=== PATIENT | male | born 1985 | race Hispanic/Latino ===

== ENCOUNTER 2020-09-09 20:58 | Emergency (ER) | payer OTHER ==
[~2020-09-09] VITALS: Ht 167.6 cm; Wt 85.7 kg
[2020-09-09 21:01] VITALS: BP 142/97
[2020-09-09 22:30] VITALS: BP 136/77
[2020-09-09 22:54] LABS: HEMATOCRIT 41.6 % (42-54); MEAN CORPUSCULAR HEMOGLOBIN 30.9 pg (27.0-33.0); MEAN CORPUSCULAR HGB CONC 35.1 g/dL (32.0-36.0); MEAN CORPUSCULAR VOLUME 87.9 fL (79-99); RED BLOOD CELL COUNT(AUTO) 4.73 MIL/uL (4.50-6.20); RED CELL DISTRIBUTION WIDTH 11.5 % (11.0-15.5); WHITE BLOOD COUNT (AUTO) 6.8 K/uL (4.8-10.8)
[2020-09-09] MEDS ORDERED: LIDOCAINE HCL 2% VISCOUS 15 ML UDCUP PO SCH (23:00)
[2020-09-09] MEDS ORDERED: FAMOTIDINE/PF 20 MG/2 ML VIAL IV SCH (23:00)
[2020-09-09] MEDS ORDERED: MAG HYDROX/AL HYDROX/SIMETH ES 30 ML SUSP UDCUP PO SCH (23:00)
[2020-09-09] MEDS ORDERED: MAG HYDROX/AL HYDROX/SIMETH ES 30 ML SUSP UDCUP ONE (23:02)
[2020-09-09 23:06] LABS: CREATININE 1.1 mg/dL (0.5-1.5); POTASSIUM 4.3 mmol/L (3.5-5.1)
[2020-09-09 23:11] LABS: ALBUMIN 4.4 g/dL (3.5-5.0); BILIRUBIN,TOTAL 0.5 mg/dL (0.2-1.0); TOTAL PROTEIN, SERUM 7.7 g/dL (6.0-8.3)
[2020-09-09 23:26] VITALS: BP 138/88
[2020-09-09 23:26] LABS: APPEARANCE,URINE Clear (CLEAR); BILIRUBIN,URINE Negative (NEGATIVE); COLOR,URINE Yellow (YELLOW); GLUCOSE, URINE (UA) Negative (NEGATIVE); KETONES,URINE Negative (NEGATIVE); LEUKOCYTE ESTERASE ,URINE Negative (NEGATIVE); NITRATE,URINE Negative (NEGATIVE); OCCULT BLOOD,URINE Negative (NEGATIVE); PROTEIN,URINE Negative (NEGATIVE); UROBILINOGEN,URINE 0.2 mg/dL (0.2-1.0)
[2020-09-09] MEDS ORDERED: PANT40TA PO (23:53)
[2020-09-10 00:24] VITALS: BP 139/82
== END 2020-09-10 00:33 | disposition home or self-care (01) ==
LOC: EDH 21:29
DX: R10.13 Epigastric pain (principal); F43.9 Reaction to severe stress, unspecified; R07.89 Other chest pain; R42 Dizziness and giddiness; R53.1 Weakness; R20.0 Anesthesia of skin; Z79.899 Other long term (current) drug therapy
CPT/HCPCS: 36415; 71045; 80053; 81003; 84484; 85027; 93005; 96374; 99285; J3490

== ENCOUNTER 2021-02-26 01:52 | Inpatient (IN) | payer SELFPAY ==
[~2021-02-26] VITALS: Ht 167.6 cm; Wt 76.7 kg
[~2021-02-26 01:52] MED LIST: PANT40TA PO
[2021-02-26 02:10] LABS: BASOPHILS % (AUTO) 1.4 % (0.0-5.0); EOSINOPHILS % (AUTO) 10.5 % (0.0-8.0); HEMATOCRIT 40.5 % (42-54); LYMPHOCYTES % (AUTO) 32.8 % (21.0-51.0); MEAN CORPUSCULAR HEMOGLOBIN 30.7 pg (27.0-33.0); MEAN CORPUSCULAR HGB CONC 34.1 g/dL (32.0-36.0); MEAN CORPUSCULAR VOLUME 90.2 fL (79-99); MONOCYTES % (AUTO) 8.3 % (3.0-13.0); NEUTROPHILS % (AUTO) 46.8 % (40.0-77.0); PLATELET COUNT (AUTO) 267 K/uL (130-400); RED BLOOD CELL COUNT(AUTO) 4.49 MIL/uL (4.50-6.20); RED CELL DISTRIBUTION WIDTH 12.4 % (11.0-15.5); WHITE BLOOD COUNT (AUTO) 8.5 K/uL (4.8-10.8)
[2021-02-26 02:23] LABS: ALANINE AMINOTRANSFERASE 25 U/L (12-78); ALBUMIN 4.4 g/dL (3.5-5.0); ASPARTATE AMINOTRANSFERASE 17 U/L (10-37); BILIRUBIN,TOTAL 0.3 mg/dL (0.2-1.0); CARBON DIOXIDE 34 mmol/L (21-32); CHLORIDE 103 mmol/L (101-111); CREATININE 1.1 mg/dL (0.5-1.5); GLOMERULAR FILTR. RATE CALC 81 mL/min (>60); POTASSIUM 3.5 mmol/L (3.5-5.1); SODIUM SERUM 143 mmol/L (136-145); TOTAL PROTEIN, SERUM 7.5 g/dL (6.0-8.3); UREA NITROGEN, BLOOD 17 mg/dL (7-18)
[2021-02-26 02:28] LABS: AMPHET/METH SCREEN,URINE NEGATIVE (NEGATIVE); BARBITURATE SCREEN, URINE NEGATIVE (NEGATIVE); BENZODIAZEPINES SCREEN,URINE POSITIVE (NEGATIVE); CANNABINOID SCREEN,URINE NEGATIVE (NEGATIVE); COCAINE SCREEN,URINE NEGATIVE (NEGATIVE); OPIATE SCREEN,URINE NEGATIVE (NEGATIVE); PHENCYCLIDINE SCREEN,URINE POSITIVE (NEGATIVE)
[2021-02-26 02:40] LABS: GLUCOSE,RANDOM 47 mg/dL (70-105); SALICYLATE < 2.8 mg/dL (2.8-20.0)
[2021-02-26 02:41] LABS: ACETAMINOPHEN < 1 mcg/mL (10-29); ALCOHOL, BLOOD < 3 mg/dL (0-10)
[2021-02-26] MEDS ORDERED: DEXTROSE 50%-WATER 50 ML DISP.SYRIN IV ONE ×2 (02:42→03:00)
[2021-02-26] MEDS ORDERED: 0.9%NACL 1000ML 1,000 ML IV ONE (03:00)
[2021-02-26] MEDS ORDERED: ONDANSETRON 4MG INJ IVP ONE (03:00)
[2021-02-26] MEDS: LACTATED RINGERS 1000ML 1,000 ML IV SCH ×2 (03:30→21:09)
[2021-02-26] MEDS ORDERED: ONDANSETRON 4MG INJ IV PRN (03:30)
[2021-02-26] MEDS: FAMOTIDINE 20MG VIAL IV SCH ×2 (08:26→21:08)
[2021-02-26 12:51] VITALS: BP 102/71
[2021-02-26] MEDS ORDERED: ACETAMINOPHEN 325 MG TAB PO PRN (13:00)
[2021-02-26] MEDS ORDERED: ACETAMINOPHEN WITH CODEINE 1 TAB TAB PO PRN (13:00)
[2021-02-26 13:29] LABS: HEMOGLOBIN A1C 5.2 % (4.0-6.0)
[2021-02-26 17:19] VITALS: BP 106/61
[2021-02-26 20:19] VITALS: BP 93/62
[2021-02-27 00:24] VITALS: BP 107/58
[2021-02-27 05:38] VITALS: BP 112/61
[2021-02-27 08:02] LABS: HEMATOCRIT 41.5 % (42-54); MEAN CORPUSCULAR HEMOGLOBIN 30.1 pg (27.0-33.0); MEAN CORPUSCULAR HGB CONC 33.3 g/dL (32.0-36.0); MEAN CORPUSCULAR VOLUME 90.4 fL (79-99); RED BLOOD CELL COUNT(AUTO) 4.59 MIL/uL (4.50-6.20); RED CELL DISTRIBUTION WIDTH 12.6 % (11.0-15.5)
[2021-02-27 08:12] VITALS: BP 113/71
[2021-02-27 08:16] LABS: ALBUMIN 3.9 g/dL (3.5-5.0); BILIRUBIN,TOTAL 0.5 mg/dL (0.2-1.0); CREATININE 1.1 mg/dL (0.5-1.5); TOTAL PROTEIN, SERUM 6.9 g/dL (6.0-8.3)
[2021-02-27] MEDS: FAMOTIDINE 20MG VIAL IV SCH (08:49)
[2021-02-27] MEDS: LACTATED RINGERS 1000ML 1,000 ML IV SCH (08:52)
[2021-02-27 11:13] VITALS: BP 122/69
== END 2021-02-27 11:35 | disposition home or self-care (01) | DRG 917 ==
LOC: EDH 01:52 → OBSVTOIN 01:53 → EDHIP 01:53 → 3BH 08:05
PROVIDERS: ADMIT Hospitalist; ATTEND Hospitalist
DX: T40.421A Poisoning by tramadol, accidental (unintentional), initial encounter (principal); G92.8 Other toxic encephalopathy; F19.20 Other psychoactive substance dependence, uncomplicated; E16.2 Hypoglycemia, unspecified; E86.0 Dehydration; Y92.89 Other specified places as the place of occurrence of the external cause
CPT/HCPCS: 36415; 71045; 80053; 80305; 82550; 82948; 83036; 85025; 85027; G0378; G0481; J2405; J3490; J7030; J7070; J7120